=== PATIENT | male | born 1970 | race Caucasian/White ===

== ENCOUNTER 2019-07-15 08:54 | Emergency (ER) | payer OTHER ==
[2019-07-15] MEDS ORDERED: KETOROLAC 30 MG/ML VIAL IVP STA (10:05)
[2019-07-15] MEDS ORDERED: SODIUM CHLORIDE 0.9% 1,000 ML IV ONE (10:05)
[2019-07-15 10:24] LABS: BASOPHILS # (AUTO) 0.1 10^3/uL (0.0-0.1); BASOPHILS % (AUTO) 0.5 %; EOSINOPHILS % (AUTO) 0.3 %; HGB - HEMOGLOBIN 14.3 g/dL (14.0-18.0); LYMPHOCYTES # (AUTO) 1.5 10^3/uL (1.5-3.5); LYMPHOCYTES % (AUTO) 12.9 %; MEAN CORPUSCULAR HGB CONC 33.4 g/dL (32.0-36.0); MEAN CORPUSCULAR VOLUME 86.8 fL (80.0-94.0); MEAN PLATELET VOLUME 10.7 fL (7.4-11.4); MONOCYTES # (AUTO) 0.6 10^3/uL (0.0-1.0); MONOCYTES % (AUTO) 4.8 %; NEUTROPHILS # (AUTO) 9.5 10^3/uL (1.5-6.6); NEUTROPHILS % (AUTO) 80.7 %; PLT - PLATELET COUNT 212 10^3/uL (130-450); RED BLOOD COUNT 4.93 10^6/uL (4.70-6.10); RED CELL DISTRIBUTION WIDTH 11.8 % (12.0-15.0); WHITE BLOOD COUNT 11.7 x10^3/uL (4.8-10.8)
[2019-07-15 10:25] LABS: BILIRUBIN,URINE NEGATIVE (NEGATIVE); GLUCOSE, URINE (UA) NEGATIVE (NEGATIVE); KETONES,URINE (UA) 15 mg/dL (NEGATIVE); LEUKOCYTE ESTERASE, URINE NEGATIVE (NEGATIVE); NITRITE,URINE NEGATIVE (NEGATIVE); OCCULT BLOOD,URINE LARGE (NEGATIVE); PROTEIN,URINE NEGATIVE (NEGATIVE); UROBILINOGEN,URINE 0.2 (NORMAL) E.U./dL (NORMAL)
[2019-07-15 10:26] LABS: CLARITY,URINE SL. CLOUDY (CLEAR)
[2019-07-15 10:30] LABS: BACTERIA,URINE Rare /HPF (None Seen); RBC,URINE TNTC /HPF (0-5); SQUAMOUS EPITHELIAL CELL,UR NONE SEEN (<= Few)
[2019-07-15 10:36] LABS: ALBUMIN 4.9 g/dL (3.2-5.5); ALBUMIN/GLOBULIN RATIO 1.8 (1.0-2.2); BILIRUBIN,TOTAL 1.8 mg/dL (0.2-1.0); CALCIUM 9.3 mg/dL (8.5-10.3); CREATININE 1.4 mg/dL (0.6-1.2); TOTAL PROTEIN 7.6 g/dL (6.7-8.2)
--- NOTE | 2019-07-15 11:34 | CT Report ---
Reason: L lower back pain hydro on bedside Procedure Date: 07/15/2019 Accession Number: [id number] / [id number] Procedure: CT - Abdomen/Pelvis WO CPT Code: Final Report FULL RESULT: EXAM: CT ABDOMEN AND PELVIS (CT KUB) EXAM DATE: 07/15/2019 11:11 AM. CLINICAL HISTORY: L lower back pain hydro on bedside. COMPARISONS: None. TECHNIQUE: Routine axial helical CT imaging was performed through the abdomen and pelvis without IV contrast. Reconstructions: Coronal and sagittal. In accordance with CT protocol optimization, one or more of the following dose reduction techniques were utilized for this exam: automated exposure control, adjustment of mA and/or KV based on patient size, or use of iterative reconstructive technique. FINDINGS: Lung Bases: Unremarkable. Right Kidney/Ureter: No stones, hydronephrosis, or hydroureter. Left Kidney/Ureter: Moderately obstructing 5 x 5 mm left UPJ stone. Otherwise grossly unremarkable. Other Abdominal Organs: Noncontrast images of the abdominal organs are grossly unremarkable. Peritoneal Cavity: No free fluid, free air or dwain adenopathy. No excessive stool burden. Bowel is grossly unremarkable. Pelvic Organs: No other bladder stones or gross wall thickening. Noncontrast images of the visualized pelvic organs are unremarkable. Vasculature: Unremarkable. Other: None. IMPRESSION: Moderately obstructing 5 x 5 mm left UPJ stone. RADIA
[2019-07-15 12:26] VITALS: BP 134/76
--- NOTE | 2019-07-15 12:56 | ED Physician Documentation ---
PD HPI BACK PAIN - Stated complaint Stated Complaint: LOW BACK PAIN - Chief complaint Chief Complaint: Back Pain - History obtained from History obtained from: Patient - History of Present Illness Timing - onset: Today Timing - duration: Hours Timing - details: Abrupt onset, Still present Location: Lower, Left Quality: Pain, Sharp Associated symptoms: No: Fever, Weakness, Numbness, Incontinent of urine, Unable to urinate, Hematuria, Incontinent of stool Improves with: Nothing Worsened by: Other (nothing) Similar symptoms before: Has not had sx before Recently seen: Not recently seen - Additional information Additional information: 48-year-old male awoke this morning and shortly after developed severe pain in his left lower back. He states that it does not seem to matter whether he is moving or staying still the pain is persistent and severe. He has not had this pain previously. He has some nausea associated with it secondary to the pain. Review of Systems Constitutional: denies: Fever Ears: denies: Ear pain Nose: denies: Congestion Throat: denies: Sore throat Respiratory: denies: Cough GI: denies: Nausea, Vomiting : denies: Dysuria, Frequency Skin: denies: Lesions Musculoskeletal: reports: Back pain. denies: Neck pain, Extremity pain PD PAST MEDICAL HISTORY - Past Surgical History Past Surgical History: Yes General: Bowel surgery - Present Medications Home Medications: Ambulatory Orders Medication Instructions Recorded Confirmed Hydrocodone/Acetaminophen 1 - 2 each PO Q6H PRN #14 tablet 07/15/19 [Hydrocodon-Acetaminophen 5-325] Tamsulosin [Flomax] 0.4 mg PO DAILY #7 capsule 07/15/19 - Allergies Allergies/Adverse Reactions: Allergies Allergy/AdvReac Type Severity Reaction Status Date / Time No Known Drug Allergies Allergy Verified 07/15/19 09:10 - Social History Does the pt smoke?: No Smoking Status: Never smoker Does the pt drink ETOH?: No Does the pt have substance abuse?: No - Immunizations Immunizations are current?: Yes PD ED PE NORMAL - Vitals Vital signs reviewed: Yes (hypertensive ) - General General: No acute distress, Well developed/nourished - HEENT HEENT: Atraumatic, PERRL, EOMI - Neck Neck: Supple, no meningeal sign, No bony TTP - Cardiac Cardiac: RRR, No murmur - Respiratory Respiratory: No respiratory distress, Clear bilaterally - Abdomen Abdomen: Normal bowel sounds, Soft, Non tender, Non distended, No organomegaly - Back Back: No CVA TTP, No spinal TTP, Other (no tenderness to the paraspinous muscles ) - Derm Derm: Normal color, Warm and dry, No rash - Extremities Extremities: No deformity, No edema - Neuro Neuro: Alert and oriented X 3, product specialist 2-12 intact, No motor deficit, No sensory deficit, Normal speech Eye Opening: Spontaneous Motor: Obeys Commands Verbal: Oriented GCS Score: 15 - Psych Psych: Normal mood, Normal affect Results - Vitals Vitals: Vital Signs - 24 hr 07/15/19 07/15/19 09:07 12:26 Temperature 36.4 C L Heart Rate 84 71 Respiratory 16 15 Rate Blood Pressure 129/90 H 134/76 H O2 Saturation 100 100 Oxygen O2 Source Room air - Labs Labs: Laboratory Tests 07/15/19 07/15/19 07/15/19 10:20 10:20 10:20 WBC 11.7 H RBC 4.93 Hgb 14.3 Hct 42.8 MCV 86.8 MCH 29.0 MCHC 33.4 RDW 11.8 L Plt Count 212 MPV 10.7 Neut # (Auto) 9.5 H Lymph # (Auto) 1.5 Darke # (Auto) 0.6 Eos # (Auto) 0.0 Baso # (Auto) 0.1 Absolute Nucleated RBC 0.00 Nucleated RBC % 0.0 Sodium 138 Potassium 4.1 Chloride 101 Carbon Dioxide 28 Anion Gap 9.0 BUN 21 H Creatinine 1.4 H Estimated GFR (MDRD) 55 L Glucose 140 H Calcium 9.3 Total Bilirubin 1.8 H AST 18 ALT 19 Alkaline Phosphatase 43 Total Protein 7.6 Albumin 4.9 Globulin 2.7 Albumin/Globulin Ratio 1.8 Lipase 28 Urine Color DARK YELLOW Urine Clarity SL. CLOUDY Urine pH 7.0 Ur Specific [place] 1.020 Urine Protein NEGATIVE Urine Glucose (UA) NEGATIVE Urine Ketones 15 H Urine Occult Blood LARGE H Urine Nitrite NEGATIVE Urine Bilirubin NEGATIVE Urine Urobilinogen 0.2 (NORMAL) Ur Leukocyte Esterase NEGATIVE Urine RBC TNTC H Urine WBC 0-3 Ur Squamous Epith Cells NONE SEEN Urine Bacteria Rare Ur Microscopic Review INDICATED Urine Culture Comments NOT INDICATED - Rads (name of study) cT ab/pel Radiology: Prelim report reviewed (Impression: Moderately obstructing 5 x 5 mm l eft UPJ stone), EMP read indepedently, See rad report Procedures - Bedside sono Bedside sono by EMP: These bedside ultrasound the left kidney is imaged there is obvious hydronephrosis and the kidney is sonographically nontender. PD MEDICAL DECISION MAKING - ED course Complexity details: reviewed results, re-evaluated patient, considered differential, d/w patient ED course: 48-year-old male with nonmodifiable left back pain, has ureterolithiasis on the left side and he has improvement with the use of Toradol intravenously and a liter of saline is administered. He eventually requires a milligram of Dilaudid with excellent pain control. His urine has blood present and his stone is 5 mm in size. He is given a prescription for hydrocodone as well as tamsulosin. I recommended that he follow-up with a urologist if he has an issue with his pain going beyond the next 3 to 4 days. Departure - Departure Disposition: 01 Home, Self Care Clinical Impression: Ureterolithiasis Condition: Stable Instructions: ED Stone Renal W Colic Follow-Up: Mariama Song ARNP [Primary Care Provider] - Prescriptions: Hydrocodone/Acetaminophen [Hydrocodon-Acetaminophen 5-325] 1 - 2 each PO Q6H PRN #14 tablet PRN Reason: pain Tamsulosin [Flomax] 0.4 mg PO DAILY #7 capsule Discharge Date/Time: 07/15/19 13:11
== END 2019-07-15 13:11 | disposition home or self-care (01) ==
LOC: ED 08:54
DX: N13.2 Hydronephrosis with renal and ureteral calculous obstruction (principal)
CPT/HCPCS: 36415; 74176; 80053; 81001; 81003; 83690; 85025; 87086; 96361; 96374; 99284

== ENCOUNTER 2019-07-17 09:30 | Emergency (ER) | payer OTHER ==
[2019-07-17] MEDS ORDERED: oxyCODONE 5 MG TABLET PO STA (10:19)
[2019-07-17] MEDS ORDERED: IBUPROFEN 800 MG TABLET PO STA (10:20)
--- NOTE | 2019-07-17 10:41 | ED Physician Documentation ---
History of Present Illness - Stated complaint Stated Complaint: SIDE/BACK PX - History obtained from History obtained from: Patient, Family - History of Present Illness Timing: How many days ago (2) Pain level max: 9 Pain level now: 9 - Additonal information Additional information: 48-year-old male presents to the emergency department left flank pain for the past 2 days. Was seen here on Tuesday and diagnosed with a 5 x 5 mm UPJ stone. States the pain is not well controlled with hydrocodone at home. No fevers. No nausea or vomiting. Nothing makes it better or worse. He is taking Flomax as well. Review of Systems Ten Systems: 10 systems reviewed and negative Constitutional: denies: Fever, Chills Nose: denies: Rhinorrhea / runny nose, Congestion GI: denies: Vomiting, Diarrhea : denies: Dysuria, Frequency, Hesitancy Skin: denies: Rash Musculoskeletal: denies: Neck pain, Back pain Neurologic: denies: Focal weakness, Numbness, Headache PD PAST MEDICAL HISTORY - Past Surgical History Past Surgical History: Yes General: Bowel surgery - Present Medications Home Medications: Ambulatory Orders Medication Instructions Recorded Confirmed Hydrocodone/Acetaminophen 1 - 2 each PO Q6H PRN #14 tablet 07/15/19 [Hydrocodon-Acetaminophen 5-325] Tamsulosin [Flomax] 0.4 mg PO DAILY #7 capsule 07/15/19 Ibuprofen [Motrin] 800 mg PO Q8H PRN #30 tablet 07/17/19 Oxycodone HCl/Acetaminophen 1 - 2 each PO Q6H PRN #14 tablet 07/17/19 [Percocet 5-325 mg Tablet] - Allergies Allergies/Adverse Reactions: Allergies Allergy/AdvReac Type Severity Reaction Status Date / Time No Known Drug Allergies Allergy Verified 07/15/19 09:10 - Social History Does the pt smoke?: No Smoking Status: Never smoker Does the pt drink ETOH?: No Does the pt have substance abuse?: No - Immunizations Immunizations are current?: Yes PD ED PE NORMAL - Vitals Vital signs reviewed: Yes - General General: Alert and oriented X 3, No acute distress, Well developed/nourished - HEENT HEENT: Moist mucous membranes - Neck Neck: Supple, no meningeal sign - Cardiac Cardiac: RRR - Respiratory Respiratory: No respiratory distress, Clear bilaterally - Abdomen Abdomen: Soft, Non tender, Non distended - Back Back: No CVA TTP - Derm Derm: Warm and dry - Neuro Neuro: Alert and oriented X 3 - Psych Psych: Normal mood, Normal affect Results - Vitals Vitals: Vital Signs - 24 hr 07/17/19 07/17/19 09:36 11:38 Temperature 37.3 C Heart Rate 100 73 Respiratory 18 18 Rate Blood Pressure 125/84 H 118/72 O2 Saturation 100 96 Oxygen O2 Source Room air - Labs Labs: Laboratory Tests 07/17/19 10:45 Urine Color YELLOW Urine Clarity CLEAR Urine pH 5.5 Ur Specific [place] 1.025 Urine Protein NEGATIVE Urine Glucose (UA) NEGATIVE Urine Ketones 15 H Urine Occult Blood TRACE-INTA Urine Nitrite NEGATIVE Urine Bilirubin NEGATIVE Urine Urobilinogen 0.2 (NORMAL) Ur Leukocyte Esterase NEGATIVE Ur Microscopic Review NOT INDICATED Urine Culture Comments NOT INDICATED PD MEDICAL DECISION MAKING - ED course Complexity details: reviewed old records, reviewed results, re-evaluated patient, considered differential, d/w patient, d/w family ED course: Patient with a known 5 x 5 mm ureteral stone. He feels much better after pain medication here. We will change his pain medication at home. No evidence of infected stone. He has contacted a urologist already. Patient counseled regarding signs and symptoms for which I believe and urgent re-evaluation would be necessary. Patient with good understanding of and agreement to plan and is comfortable going home at this time This document was made in part using voice recognition software. While efforts are made to proofread this document, sound alike and grammatical errors may occur. Departure - Departure Disposition: 01 Home, Self Care Clinical Impression: Ureterolithiasis Condition: Good Instructions: ED Stone Renal W Colic Follow-Up: Mariama Song ARNP [Primary Care Provider] - Within 1 week Prescriptions: Ibuprofen [Motrin] 800 mg PO Q8H PRN #30 tablet PRN Reason: PAIN &/OR FEVER Oxycodone HCl/Acetaminophen [Percocet 5-325 mg Tablet] 1 - 2 each PO Q6H PRN #14 tablet PRN Reason: pain Comments: Use of medications as prescribed. Return if you worsen. Follow-up with your doctor for further care. Do not drink alcohol or drive while on narcotic pain medicine. Note that many narcotic pain relievers also contain tylenol/acetaminophen. Please ensure that your total dose of acetaminophen from all sources does not exceed 3 grams (3000mg) per day. You may constipated on this medication, take a stool softener such as "Colace" twice a day while you are on it. Also recommend a [id number] laxative such as senna or MiraLAX any day that you do not have a bowel movement. If you received narcotic pain medication in the emergency department, do not drive or operate machinery for the next 24 hours. Discharge Date/Time: 07/17/19 12:03
[2019-07-17 11:04] LABS: GLUCOSE, URINE (UA) NEGATIVE (NEGATIVE); KETONES,URINE (UA) 15 mg/dL (NEGATIVE); LEUKOCYTE ESTERASE, URINE NEGATIVE (NEGATIVE); NITRITE,URINE NEGATIVE (NEGATIVE); OCCULT BLOOD,URINE TRACE-INTA (NEGATIVE); PH,URINE 5.5 PH (5.0-7.5); PROTEIN,URINE NEGATIVE (NEGATIVE); UROBILINOGEN,URINE 0.2 (NORMAL) E.U./dL (NORMAL)
[2019-07-17 11:12] LABS: BILIRUBIN,URINE NEGATIVE (NEGATIVE); CLARITY,URINE CLEAR (CLEAR); ICTOTEST,URINE NEGATIVE
[2019-07-17 11:39] VITALS: BP 118/72
== END 2019-07-17 12:03 | disposition home or self-care (01) ==
LOC: ED 09:30
DX: N20.1 Calculus of ureter (principal)
CPT/HCPCS: 81003; 99283; A9270; 81001; 87086